=== PATIENT | female | born 1960 | race Caucasian/White ===

== ENCOUNTER 2021-03-28 14:37 | Outpatient (CLI) | payer BC, SELFPAY | END 2021-03-28 14:38 | disposition home or self-care (01) | PROVIDERS: PCP Nurse Practitioner; Visit Provider Otolaryngology | DX: H93.13 Tinnitus, bilateral (principal); H91.90 Unspecified hearing loss, unspecified ear; H69.83 Other specified disorders of Eustachian tube, bilateral | CPT/HCPCS: 92557; 92567 ==

== ENCOUNTER → 2022-01-28 08:21 | Outpatient (CLI) | payer BC, SELFPAY ==
--- NOTE | ~2022-01-28 | XR_ITS ---
EXAMINATION: XR knee RT 2V EXAM DATE: 01/28/2022 08:59 INDICATION: Bilateral knee pain . Bilateral knee pain x 3 years after hurting knees at work. Knee margarita n getting worse over the last 2 weeks. Left knee worse than right, more medial side. No surgery. TECHNIQUE: Frontal and lateral projections of the right knee. Correlation is made to contralateral k nee same date. FINDINGS: There is minimal right patellofemoral and medial tibiofemoral compartment primary osteoarth ritis. Trace joint effusion. There are no acute fractures identified. No radiopaque foreign bodies i dentified. IMPRESSION: 1. Trace right knee joint effusion. 2. Minimal osteoarthritis. Reviewed, dictated and finalized at location G.
--- NOTE | ~2022-01-28 | XR_ITS ---
EXAMINATION: XR knee LT 2V EXAM DATE: 01/28/2022 08:59 INDICATION: Bilateral knee pain. Bilateral knee pain x 3 years after hurting knees at work. Knee p ain getting worse over the last 2 weeks. Left knee worse than right, more medial side. No surgery. TECHNIQUE: Frontal and lateral projections of the left knee. Correlation is made to contralateral kn ee same date. FINDINGS: There are no acute left knee fractures or dislocations identified. There is no subcutaneou s gas. There is small joint effusion. There is mild patellofemoral and medial tibial femoral compart ment primary osteoarthritis. There are no radiopaque foreign bodies. IMPRESSION: 1. Small left knee joint effusion. 2. Mild osteoarthritis. Reviewed, dictated and finalized at location G.
== END ==
PROVIDERS: Visit Provider Nurse Practitioner
DX: M25.462 Effusion, left knee (principal); M17.0 Bilateral primary osteoarthritis of knee
CPT/HCPCS: 73560

== ENCOUNTER 2022-09-22 12:37 | Outpatient (CLI) | payer BC, SELFPAY ==
--- NOTE | 2022-09-22 15:08 | ECG_ITS ---
Measurements Intervals Social Circle Rate: 63 P: 6 WI: 162 QRS: 37 QRSD: 85 T: 29 QT: 384 QTc: 393 Interpretive Statements SINUS RHYTHM BASELINE ARTIFACT- I, II, III, AVR, AVL, AVF NORMAL ECG NO PREVIOUS ECG AVAILABLE FOR COMPARISON Electronically Signed On 09-22-2022 15:57:07 SHOT DROPPER by King Gordon D.O.
[2022-09-22 15:55] LABS: Anion Gap 9 mmol/L (8-16); Blood Urea Nitrogen 24 mg/dL (7-17); Calcium 9.6 mg/dL (8.4-10.2); Carbon Dioxide 30 mmol/L (22-30); Chloride 99 mmol/L (98-107); Estimated Glomerular Filt Rate > 60; Glucose 89 mg/dL (65-110); Potassium 3.5 mmol/L (3.4-5.0); Sodium 138 mmol/L (137-145)
== END 2022-09-22 12:38 | disposition home or self-care (01) ==
PROVIDERS: Anesthesiology; PCP Nurse Practitioner; Visit Provider Orthopaedic Surgery
DX: Z01.818 Encounter for other preprocedural examination (principal); I10 Essential (primary) hypertension; Z79.899 Other long term (current) drug therapy
CPT/HCPCS: 36415; 80048; 93005

== ENCOUNTER 2022-09-25 00:13 | Day surgery (SDC) | payer BC, SELFPAY ==
[2022-09-20 15:57] VITALS: BMI 31.3
--- NOTE | 2022-09-20 16:00 | PC.NURSE ---
Report to the Outpatient Waiting Room, entrance under the green pavilion located off [facility], at time 11:30 on date 09/25/22. Planned Procedure Time: 1:30. Time changes happen often and if your time is changed the preop area will call you the afternoon before. - You and your visitor will be asked to self-screen and do not enter if you have any COVID symptoms. - Only one visitor is requested with a max of two and NO children visitors are allowed at this time. - The patient visitor may be requested to leave or wait in car when not with patient due to distancing restrictions. - A mask is optional within the hospital. Patients may have clear liquids (water, carbonated beverages, clear teas, apple juice) until 3 hours prior to surgery (10:30) with a maximum of 20 ounces. - No food from midnight until time of surgery Take the following medications with a SIP of water the morning of surgery: LEVOTHYROXINE, TYLENOL IF NEEDED Medications to discontinue per physician: VITAMINS/SUPPLEMENTS Date to take last dose: 09/21/22 Please no make-up, nail swedish, hairspray, perfume, deodorant, or body powder the day of surgery. No jewelry (including any body piercings) or valuables the day of surgery, leave them at home. Please take a shower or bath the night before, or the morning of, surgery with an antibacterial soap. Wear comfortable, loose fitting clothing. - Jewelry must be removed prior to entering the operating room. Rings and piercings that are not removed may be cut off. - The hospital will not accept responsibility for valuables. - Please leave all valuables, including medications, at home the day of surgery. If you are going home after surgery, a licensed helper/driver must drive you home. - NO public transportation without another adult if you receive anesthesia. - We recommend that an adult stay with you for 24 hours following discharge. - We also recommend that you do not drive, make important decision, drink alcoholic beverages, or take any drugs that were not prescribed by your health care provider for at least 24 hours after your discharge time. Follow any additional instructions given to you from your surgeon. If you or anyone in your household have experienced Covid symptoms in the past week, please notify your surgeon or the nurse liaison at the phone number below for possible testing. Telephone instructions given to PT - RENETTA HORTAOE and asked if any additional questions and then verbalized understanding. Patient advised to call surgeon office or pre surgery nurse liaison [phone] if any additional questions.
[2022-09-25] VITALS (7 sets, daily range): BP systolic 118–134; BP diastolic 55–78; PULSE 58–85; RESP 12–18; TEMP 36.1–36.7; O2SAT 100
[2022-09-25] MEDS: ACETAMINOPHEN 500 MG TABLET 1000 MG PO (12:00)
[2022-09-25] MEDS: KETOROLAC 15 MG/ML VIAL (*BKC) IV PUSH (12:05)
--- NOTE | 2022-09-25 13:00 | WPDHPUPDATE1 ---
History and Physical Update Update Date/Time: 09/25/22 13:00 History and Physical has been reviewed, including an updated exam of the patient. There are NO changes in the patient's condition. Risks, benefits, and alternatives have been discussed and questions answered. Patient agrees to proceed with procedure.
--- NOTE | 2022-09-25 13:06 | WPDANESEPPF ---
Anes - Initial Pre Proc Eval Procedure: Operation Date: 09/25/22 13:30 Proposed Procedures p Right Carpal Tunnel Release - Armando Red MD Date/Time: 09/25/22 13:06 Surgeon: Armando Red MD Pre Op Diagnosis: right carpal tunnel syndrome Patient Data Age: 62 Gender: F Height: 1.68 m Weight: 87 kg Last Vital Signs Temp 98.1 F 09/25/22 12:08 Pulse 77 09/25/22 12:08 Resp 18 09/25/22 12:08 BP 124/68 09/25/22 12:08 Pulse Ox 100 09/25/22 12:08 O2 Del Method Room Air 09/25/22 12:08 Allergies Allergy/AdvReac Type Severity Reaction Status Date / Time Sulfa (Sulfonamide Allergy Unknown Anaphylaxis Verified 09/25/22 11:39 Antibiotics) Home Medications Medication Instructions Recorded Confirmed Type calcium carbonate 600 mg calcium 600 mg PO DAILY 03/16/21 09/20/22 History (1,500 mg) tablet (Calcium) levothyroxine 100 mcg capsule 100 mcg PO DAILY 03/16/21 09/20/22 History lisinopril 20 1 tablet PO DAILY 03/16/21 09/20/22 History mg-hydrochlorothiazide 12.5 mg tablet multivitamin 1 tablet PO DAILY 03/16/21 09/20/22 History omega-3 fatty acids 1,000 mg 1,000 mg PO BID 03/16/21 09/20/22 History capsule (Fish Oil Concentrate) glucosamine-chondroitin 250 mg-200 2 tablet PO TID 02/21/22 09/20/22 History mg tablet (Osteo Bi-Flex) omeprazole 20 mg capsule,delayed 20 mg PO DAILY 02/21/22 09/20/22 History release acetaminophen 650 mg 650 mg PO Q8H 09/19/22 09/20/22 History tablet,extended release (Tylenol Arthritis Pain) ibuprofen 200 mg tablet (Advil) 200 mg PO Q6H PRN Pain 09/19/22 09/20/22 History Patient hx anesthesia problems: none Family hx anesthesia problems: none Results Review: All pre-operative results and documents have been reviewed as part of the pre-operative evaluation. 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 Informed Consent: The patient's anesthetic plan and its attendant risks and benefits were discussed with the patient/family/POA. Questions were solicited and answers provided to the satisfaction of the patient/family/POA.
[2022-09-25] MEDS: ceFAZolin 2 GM/D5W 50 ML 2 GM/50 ML BAG IVPB (13:21)
[2022-09-25] MEDS: BUPIVACAINE/EPINEPHRINE 0.25% 50 ML VIAL 10 ML INFILTRATE (13:42)
[2022-09-25] MEDS: LACTATED RINGERS 1,000 ML 30 ML IV CONT (13:52)
--- NOTE | 2022-09-25 13:58 | P.OP_ITS ---
Procedure Note - Detailed Date of Procedure 09/25/22 Pre-op Diagnosis right carpal tunnel syndrome Post-op Diagnosis Same Procedure Performed open right carpal tunnel release Surgeon Armando Red MD Panel Flow Machine Operator Yashira Bridges Anesthesia MAC and Local Description of Procedure The patient was identified and proper side identified. After being taken to the operating room and transferred to the OR table, a nonsterile tourniquet was placed high on the right upper extremity, which was prepped and draped in the usual sterile fashion. After IV sedation was administered, the subcutaneous tissue in the area of the incision was infiltrated with several cc of 0.25% Marcaine and epinephrine solution. The extremity was exsanguinated and tourniquet inflated to 250 mmHg remaining up for approximately four minutes. A longitudinal incision was over the ulnar aspect of the transverse carpal li gament. Subcutaneous tissue was bluntly dissected down to the ligament, which was identified and then transected longitudinally in line with the incision releasing the contents of the carpal canal. The tourniquet was released. Hemostasis was carried out with bipolar electrocautery. The median nerve had appropriate blush with reperfusion. The wound was irrigated with sterile saline solution. Skin edges were reapproximated with four 0 nylon suture and a sterile dressing was applied. A well-padded volar wrist splint was fashioned with the wrist in a neutral position. Estimated Blood Loss 2 Tourniquet Time 4 Drains No Packing No Pathology None sent Complications No immediate complications Condition Stable Disposition PACU
== END 2022-09-25 15:30 | disposition home or self-care (01) ==
PROVIDERS: PCP Nurse Practitioner; Visit Provider Orthopaedic Surgery
PROC: (CPT 64721; principal; 2022-09-25 13:30)
DX: G56.01 Carpal tunnel syndrome, right upper limb (principal); E66.9 Obesity, unspecified; Z68.31 Body mass index [BMI] 31.0-31.9, adult
CPT/HCPCS: 64721; A9270; J0690; J1100; J1885; J2250; J2405; J2704; J7120

== ENCOUNTER → 2022-10-04 14:01 | Outpatient (CLI) | payer BC, SELFPAY ==
--- NOTE | ~2022-10-04 | MR_ITS ---
EXAMINATION: MR knee LT wo con DATE: 10/04/2022 14:32 INDICATION: Left knee pain. TECHNIQUE: Magnetic resonance imaging (MRI) of the left knee was performed without intravenous contra st. Sequences included axial PD-weighted FS FSE, coronal PD-weighted FSE and PD-weighted FS FSE, sagi ttal PD-weighted FSE, and sagittal T2-weighted FS FSE. COMPARISON: Left knee radiographs 01/28/2022 FINDINGS: Medial compartment: There is a complex tear involving posterior horn of medial meniscus. There is shallow partial-thickne ss cartilage loss of tibial condyle with mild subchondral edema-like marrow signal intensity. There i s shallow partial-thickness cartilage loss of femoral condyle. Osteophytes are noted. Lateral compartment: The femoral cartilage is normal. There is shallow partial-thickness cartilage loss of tibial condyle involving the medial articular surface with mild subchondral edema-like marrow signal intensity. Oste ophytes are noted. Patellofemoral compartment: There is deep partial thickness cartilage loss of patellar medial facet and median ridge with mild an bchondral edema-like signal intensity. There is shallow partial-thickness cartilage loss of trochlea. Osteophytes are noted. Ligaments and tendons: Anterior cruciate ligament is normal. There is a partial tear of posterior cruciate ligament characte rized by increased signal intensity. Medial collateral ligament and lateral collateral ligament compl ex are normal. There is mild patellar tendinopathy. Fluid: There is a moderate-sized knee joint effusion. There is trace fluid in a Villa's cyst. There is mild superficial infrapatellar bursitis. IMPRESSION: 1. Moderate chondrosis of patellofemoral compartment and mild chondrosis of medial and lateral compar tments. 2. Complex tear of medial meniscus. 3. Partial tear of posterior cruciate ligament. 4. Moderate-sized knee joint effusion. Reviewed, dictated and finalized at location A. TROPLATING TECHNICIAN IMPRESSION: 1. Moderate chondrosis of patellofemoral compartment and mild chondrosis of med ial and lateral compartments. 2. Complex tear of medial meniscus. 3. Partial tear of posterior cruciate ligament. 4. Moderate-sized knee joint effusion.
== END ==
PROVIDERS: PCP Orthopaedic Surgery; Visit Provider Orthopaedic Surgery
DX: S83.522A Sprain of posterior cruciate ligament of left knee, initial encounter (principal); S83.232A Complex tear of medial meniscus, current injury, left knee, initial encounter; X58.XXXA Exposure to other specified factors, initial encounter; M25.462 Effusion, left knee
CPT/HCPCS: 73721